=== PATIENT | male | born 1975 | race Caucasian/White ===

== ENCOUNTER 2023-09-12 15:45 | Outpatient (CLI) | payer OTHER, SELFPAY | END 2023-09-12 15:46 | disposition home or self-care (01) | LOC: NFLDREF 09-15 22:13 | PROVIDERS: PCP Physician Assistant Medical; Referring Provider Physician Assistant Medical; Visit Provider Physician Assistant Medical | DX: Z00.00 Encounter for general adult medical examination without abnormal findings (principal); R74.01 Elevation of levels of liver transaminase levels; Z13.6 Encounter for screening for cardiovascular disorders | CPT/HCPCS: 80053; 80061; 84443 ==